=== PATIENT | male | born 1945 | race Caucasian/White ===

== ENCOUNTER 2017-07-03 09:59 | Inpatient (IN) | payer MEDICARE, MEDICAID, OTHER ==
[2017-07-03] MEDS: IV NORMAL SALINE 1000ML BAG 1,000 ML IV (10:38)
[2017-07-03 10:54] LABS: ADD MAN DIFF? NO
[2017-07-03 10:58] LABS: BASO # 0.1 x10^3/uL (0.0-0.2); BASO % 1 % (0-3); EOS # 0.3 x10^3/uL (0.0-0.7); EOS % 4 % (0-3); HEMATOCRIT 42.3 % (39.0-53.0); HEMOGLOBIN 14.2 g/dL (13.0-17.5); LYMPH # 1.8 x10^3/uL (1.0-4.8); LYMPH % 23 % (24-48); MEAN CORPUSCULAR HEMOGLOBIN 32 pg (25-35); MEAN CORPUSCULAR HGB CONC 34 g/dL (31-37); MEAN CORPUSCULAR VOLUME 96 fL (79-100); MONO # 0.7 x10^3/uL (0.0-1.1); MONO % 9 % (0-9); NEUT # 4.9 x10^3uL (1.8-7.7); NEUT % 63 % (31-73); PLATELET COUNT 193 x10^3/uL (140-400); RED BLOOD COUNT 4.41 x10^6/uL (4.30-5.70); RED CELL DISTRIBUTION WIDTH 13.4 % (11.5-14.5); WHITE BLOOD COUNT 7.8 x10^3/uL (4.0-11.0)
[2017-07-03 11:12] LABS: ANION GAP 12 (6-14); BLOOD UREA NITROGEN 21 mg/dL (8-26); BUN/CREATININE RATIO 18 (6-20); CARBON DIOXIDE 26 mmol/L (21-32); CHLORIDE 105 mmol/L (98-107); CREATININE 1.2 mg/dL (0.7-1.3); GFR 59.9; GLUCOSE 120 mg/dL (70-99); POTASSIUM 3.9 mmol/L (3.5-5.1); SODIUM 143 mmol/L (136-145)
[2017-07-03 11:19] LABS: ALBUMIN 3.7 g/dL (3.4-5.0); ALK PHOS 83 U/L (46-116); ALT (SGPT) 22 U/L (16-63); AST (SGOT) 14 U/L (15-37); CREATINE KINASE 62 U/L (39-308); LIPASE 210 U/L (73-393); TOTAL BILIRUBIN 0.4 mg/dL (0.2-1.0); TOTAL PROTEIN 7.4 g/dL (6.4-8.2)
[2017-07-03 11:19] LABS: TROPONINI < 0.017 ng/mL (0.000-0.055)
[2017-07-03 11:23] LABS: NT-PRO BNP 293 pg/mL (0-124)
[2017-07-03 11:26] LABS: THYROID STIM HORMONE (TSH) 1.035 uIU/mL (0.358-3.74)
[2017-07-03 11:27] LABS: PARTIAL THROMBOPLASTIN TIME 28 SEC (24-38); PROTHROMBIN TIME PATIENT 12.3 SEC (11.7-14.0)
[2017-07-03] MEDS ORDERED: ONDANSETRON PF 4 MG/2 ML VIAL. IV (11:45)
[2017-07-03] MEDS ORDERED: fentaNYL PF VIAL 100 MCG/2 ML VIAL IV (11:45)
[2017-07-03 11:53] LABS: BARBITURATES NEG (NEG); BENZODIAZEPINES NEG (NEG); CANNABINOIDS NEG (NEG); COCAINE NEG (NEG); METHADONE NEG (NEG); OPIATES NEG (NEG); PHENCYCLIDINE NEG (NEG)
[2017-07-03 11:56] LABS: AMPHETAMINE/METHAMPHETAMINE NEG (NEG); ETHANOL, URINE NEG (NEG)
[2017-07-03] MEDS ORDERED: NITROGLYCERIN SUBLINGUAL 0.4 MG BOTTLE OF 25. SL (14:30)
[2017-07-03] MEDS ORDERED: NON FORMULARY ITEM (Albuterol Sulfate (Proventil Hfa Inhaler) 1 PUFF) IH (14:30)
[2017-07-03] MEDS ORDERED: METHYL SALICYLATE/MENTHOL TOPICAL OINTMENT 29GM TUBE. TP (14:45)
[2017-07-03] MEDS ORDERED: ALBUTEROL SULFATE 2.5 MG/3 ML NEBU. NEB (14:45)
[2017-07-03 17:53] LABS: TROPONINI < 0.017 ng/mL (0.000-0.055)
[2017-07-03] MEDS: IBUPROFEN 400 MG TABLET. PO (21:15)
[2017-07-03] MEDS: ATORVASTATIN CALCIUM 20 MG TABLET PO (21:15)
[2017-07-03] MEDS: MONTELUKAST SODIUM 10 MG TABLET. PO (21:15)
[2017-07-03] MEDS: LISINOPRIL 20 MG TABLET PO (21:16)
[2017-07-03] MEDS: ACETAMINOPHEN 325 MG TABLET. PO (21:18)
[2017-07-03] MEDS: DOCUSATE SODIUM 100 MG CAPSULE. PO (21:18)
[2017-07-04 00:17] LABS: TROPONINI < 0.017 ng/mL (0.000-0.055)
[2017-07-04 08:28] LABS: ADD MAN DIFF? NO
[2017-07-04 08:35] LABS: BASO # 0.1 x10^3/uL (0.0-0.2); BASO % 1 % (0-3); EOS # 0.4 x10^3/uL (0.0-0.7); EOS % 7 % (0-3); HEMOGLOBIN 13.2 g/dL (13.0-17.5); LYMPH # 1.4 x10^3/uL (1.0-4.8); LYMPH % 21 % (24-48); MEAN CORPUSCULAR HEMOGLOBIN 31 pg (25-35); MEAN CORPUSCULAR HGB CONC 33 g/dL (31-37); MEAN CORPUSCULAR VOLUME 94 fL (79-100); MONO # 0.5 x10^3/uL (0.0-1.1); MONO % 8 % (0-9); NEUT # 4.1 x10^3uL (1.8-7.7); NEUT % 64 % (31-73); PLATELET COUNT 167 x10^3/uL (140-400); RED BLOOD COUNT 4.24 x10^6/uL (4.30-5.70); RED CELL DISTRIBUTION WIDTH 13.2 % (11.5-14.5); WHITE BLOOD COUNT 6.4 x10^3/uL (4.0-11.0)
[2017-07-04] MEDS: PRENATAL MULTIVITAMIN TABLET. PO ×2 (09:00→09:58)
[2017-07-04] MEDS: LISINOPRIL 20 MG TABLET PO (09:00)
[2017-07-04] MEDS: ACETAMINOPHEN 325 MG TABLET. PO ×2 (09:00→20:27)
[2017-07-04 09:02] LABS: ALBUMIN 3.4 g/dL (3.4-5.0); ALBUMIN/GLOBULIN RATIO 0.9 (1.0-1.7); ALK PHOS 81 U/L (46-116); ALT (SGPT) 19 U/L (16-63); ANION GAP 9 (6-14); AST (SGOT) 10 U/L (15-37); BLOOD UREA NITROGEN 18 mg/dL (8-26); BUN/CREATININE RATIO 16 (6-20); CALCIUM 8.7 mg/dL (8.5-10.1); CARBON DIOXIDE 25 mmol/L (21-32); CHLORIDE 108 mmol/L (98-107); CREATININE 1.1 mg/dL (0.7-1.3); GFR 66.2; GLUCOSE 91 mg/dL (70-99); POTASSIUM 4.4 mmol/L (3.5-5.1); SODIUM 142 mmol/L (136-145); TOTAL BILIRUBIN 0.4 mg/dL (0.2-1.0)
[2017-07-04 09:39] LABS: CHOLESTEROL 130 mg/dL (0-200); HDLC 40 mg/dL (40-60); LDLC 70 mg/dL (0-100); NON-HDL CHOLESTEROL 90 mg/dL (0-129); TRIGLYCERIDES 101 mg/dL (0-150); VLDLC 20 mg/dL (0-40)
[2017-07-04 09:39] LABS: MAGNESIUM 2.1 mg/dL (1.8-2.4)
[2017-07-04 09:40] LABS: CHOLESTEROL/HDL RATIO 3.3
[2017-07-04] MEDS: IBUPROFEN 400 MG TABLET. PO ×2 (09:56→20:24)
[2017-07-04] MEDS: ASPIRIN ENTERIC COATED 81 MG TABLET.DR. PO (09:58)
[2017-07-04] MEDS: CLOPIDOGREL BISULFATE 75 MG TABLET PO (09:58)
[2017-07-04 11:30] LABS: VITAMIN-B12 303 pg/mL (247-911)
[2017-07-04] MEDS: METOPROLOL TART IMMED RELEASE 25 MG TABLET. PO (18:13)
[2017-07-04] MEDS: ATORVASTATIN CALCIUM 20 MG TABLET PO (20:24)
[2017-07-04] MEDS: DOCUSATE SODIUM 100 MG CAPSULE. PO (20:25)
[2017-07-04] MEDS: MONTELUKAST SODIUM 10 MG TABLET. PO (20:27)
[2017-07-05 03:42] LABS: ADD MAN DIFF? NO
[2017-07-05 03:46] LABS: BASO % 1 % (0-3); EOS # 0.6 x10^3/uL (0.0-0.7); EOS % 7 % (0-3); HEMATOCRIT 38.9 % (39.0-53.0); LYMPH % 25 % (24-48); MEAN CORPUSCULAR HEMOGLOBIN 31 pg (25-35); MEAN CORPUSCULAR HGB CONC 33 g/dL (31-37); MEAN CORPUSCULAR VOLUME 94 fL (79-100); MONO # 0.7 x10^3/uL (0.0-1.1); MONO % 9 % (0-9); NEUT # 4.6 x10^3uL (1.8-7.7); NEUT % 58 % (31-73); PLATELET COUNT 169 x10^3/uL (140-400); RED BLOOD COUNT 4.13 x10^6/uL (4.30-5.70); RED CELL DISTRIBUTION WIDTH 13.3 % (11.5-14.5); WHITE BLOOD COUNT 7.9 x10^3/uL (4.0-11.0)
[2017-07-05 04:04] LABS: ANION GAP 8 (6-14); BLOOD UREA NITROGEN 21 mg/dL (8-26); CALCIUM 8.5 mg/dL (8.5-10.1); CARBON DIOXIDE 25 mmol/L (21-32); CHLORIDE 107 mmol/L (98-107); CREATININE 1.1 mg/dL (0.7-1.3); GFR 66.2; GLUCOSE 87 mg/dL (70-99); POTASSIUM 4.3 mmol/L (3.5-5.1); SODIUM 140 mmol/L (136-145)
[2017-07-05] MEDS: ACETAMINOPHEN 325 MG TABLET. PO ×2 (09:00→20:39)
[2017-07-05] MEDS: PRENATAL MULTIVITAMIN TABLET. PO (09:54)
[2017-07-05] MEDS: METOPROLOL TART IMMED RELEASE 25 MG TABLET. PO ×2 (10:02→20:38)
[2017-07-05] MEDS: CLOPIDOGREL BISULFATE 75 MG TABLET PO (10:03)
[2017-07-05] MEDS: ASPIRIN ENTERIC COATED 81 MG TABLET.DR. PO (10:03)
[2017-07-05] MEDS: LISINOPRIL 10 MG TABLET PO (10:03)
[2017-07-05] MEDS: IBUPROFEN 400 MG TABLET. PO ×2 (10:09→20:38)
[2017-07-05] MEDS: REGADENOSON 0.4 MG/5 ML DISP.SYRIN. IV (14:07)
[2017-07-05] MEDS: ATORVASTATIN CALCIUM 20 MG TABLET PO (20:38)
[2017-07-05] MEDS: MONTELUKAST SODIUM 10 MG TABLET. PO (20:39)
[2017-07-05] MEDS: DOCUSATE SODIUM 100 MG CAPSULE. PO (20:39)
[2017-07-06 06:30] LABS: ADD MAN DIFF? NO
[2017-07-06 06:35] LABS: BASO # 0.1 x10^3/uL (0.0-0.2); BASO % 1 % (0-3); EOS # 0.7 x10^3/uL (0.0-0.7); EOS % 9 % (0-3); HEMATOCRIT 39.9 % (39.0-53.0); HEMOGLOBIN 13.4 g/dL (13.0-17.5); LYMPH # 1.5 x10^3/uL (1.0-4.8); LYMPH % 19 % (24-48); MEAN CORPUSCULAR HEMOGLOBIN 31 pg (25-35); MEAN CORPUSCULAR HGB CONC 34 g/dL (31-37); MEAN CORPUSCULAR VOLUME 93 fL (79-100); MONO # 0.6 x10^3/uL (0.0-1.1); MONO % 7 % (0-9); NEUT # 5.1 x10^3uL (1.8-7.7); NEUT % 65 % (31-73); PLATELET COUNT 176 x10^3/uL (140-400); RED BLOOD COUNT 4.29 x10^6/uL (4.30-5.70); RED CELL DISTRIBUTION WIDTH 13.4 % (11.5-14.5)
[2017-07-06 06:53] LABS: ANION GAP 9 (6-14); BLOOD UREA NITROGEN 22 mg/dL (8-26); CALCIUM 8.8 mg/dL (8.5-10.1); CARBON DIOXIDE 26 mmol/L (21-32); CHLORIDE 106 mmol/L (98-107); CREATININE 1.2 mg/dL (0.7-1.3); GFR 59.9; GLUCOSE 104 mg/dL (70-99); POTASSIUM 4.5 mmol/L (3.5-5.1); SODIUM 141 mmol/L (136-145)
[2017-07-06] MEDS: ACETAMINOPHEN 325 MG TABLET. PO ×2 (09:00→20:46)
[2017-07-06] MEDS: IBUPROFEN 400 MG TABLET. PO (10:24)
[2017-07-06] MEDS ORDERED: LIDOCAINE 2% 20 ML VIAL. ×2 (12:42→13:31)
[2017-07-06] MEDS ORDERED: IOHEXOL 300 MG/ML 100ML VIAL. (12:42)
[2017-07-06] MEDS ORDERED: MIDAZOLAM HCL/PF 2 MG/2 ML VIAL. (13:21)
[2017-07-06] MEDS ORDERED: fentaNYL PF VIAL 100 MCG/2 ML VIAL (13:21)
[2017-07-06] MEDS ORDERED: CONTRAST GIVEN MC (13:45)
[2017-07-06] MEDS: IOHEXOL 300 MG/ML 100ML VIAL. IART (13:59)
[2017-07-06] MEDS: LIDOCAINE 2% 20 ML VIAL. IJ (14:01)
[2017-07-06] MEDS: fentaNYL PF VIAL 100 MCG/2 ML VIAL IV (14:02)
[2017-07-06] MEDS: MIDAZOLAM HCL/PF 2 MG/2 ML VIAL. IV (14:03)
[2017-07-06] MEDS: LISINOPRIL 10 MG TABLET PO (14:46)
[2017-07-06] MEDS: CLOPIDOGREL BISULFATE 75 MG TABLET PO (14:46)
[2017-07-06] MEDS: ASPIRIN ENTERIC COATED 81 MG TABLET.DR. PO (14:46)
[2017-07-06] MEDS: METOPROLOL TART IMMED RELEASE 25 MG TABLET. PO ×2 (14:46→20:45)
[2017-07-06] MEDS: IV NORMAL SALINE 1000ML BAG 1,000 ML IV (15:46)
[2017-07-06] MEDS ORDERED: 0.9 % SODIUM CHLORIDE 10 ML DISP.SYRIN. IV (16:00)
[2017-07-06] MEDS ORDERED: NITROGLYCERIN SUBLINGUAL 0.4 MG BOTTLE OF 25. SL (16:00)
[2017-07-06] MEDS: HEPARIN 25,000UTS/500ML PREMIX 500 ML IV (16:36)
[2017-07-06] MEDS: HEPARIN for IV BOLUS 10,000 UNIT/10 ML VIAL. IV ×2 (16:40→23:17)
[2017-07-06] MEDS: MONTELUKAST SODIUM 10 MG TABLET. PO (20:44)
[2017-07-06] MEDS: ATORVASTATIN CALCIUM 20 MG TABLET PO (20:45)
[2017-07-06] MEDS: DOCUSATE SODIUM 100 MG CAPSULE. PO (20:45)
[2017-07-06 23:01] LABS: UNFRACTIONATED HEPARIN TESTING < 0.10 IU/mL (0.30-0.70)
[2017-07-07 04:54] LABS: ADD MAN DIFF? NO
[2017-07-07 04:58] LABS: BASO # 0.1 x10^3/uL (0.0-0.2); BASO % 1 % (0-3); EOS # 0.6 x10^3/uL (0.0-0.7); EOS % 7 % (0-3); HEMATOCRIT 40.7 % (39.0-53.0); HEMOGLOBIN 13.7 g/dL (13.0-17.5); LYMPH % 23 % (24-48); MEAN CORPUSCULAR HEMOGLOBIN 32 pg (25-35); MEAN CORPUSCULAR HGB CONC 34 g/dL (31-37); MEAN CORPUSCULAR VOLUME 94 fL (79-100); MONO # 0.7 x10^3/uL (0.0-1.1); MONO % 8 % (0-9); NEUT # 5.5 x10^3uL (1.8-7.7); NEUT % 62 % (31-73); PLATELET COUNT 178 x10^3/uL (140-400); RED BLOOD COUNT 4.33 x10^6/uL (4.30-5.70); RED CELL DISTRIBUTION WIDTH 13.5 % (11.5-14.5); WHITE BLOOD COUNT 8.8 x10^3/uL (4.0-11.0)
[2017-07-07 05:12] LABS: UNFRACTIONATED HEPARIN TESTING 0.15 IU/mL (0.30-0.70)
[2017-07-07 05:22] LABS: ANION GAP 11 (6-14); BLOOD UREA NITROGEN 24 mg/dL (8-26); CALCIUM 8.1 mg/dL (8.5-10.1); CARBON DIOXIDE 23 mmol/L (21-32); CHLORIDE 105 mmol/L (98-107); CREATININE 1.1 mg/dL (0.7-1.3); GFR 66.2; GLUCOSE 98 mg/dL (70-99); POTASSIUM 4.1 mmol/L (3.5-5.1); SODIUM 139 mmol/L (136-145)
[2017-07-07] MEDS: HEPARIN for IV BOLUS 10,000 UNIT/10 ML VIAL. IV (05:35)
[2017-07-07] MEDS: ANTI-COAG MONITOR BY PHARMACY. MC (07:47)
[2017-07-07] MEDS: ACETAMINOPHEN 325 MG TABLET. PO ×2 (09:00→20:14)
[2017-07-07] MEDS: METOPROLOL TART IMMED RELEASE 25 MG TABLET. PO ×2 (09:07→20:18)
[2017-07-07] MEDS: PRENATAL MULTIVITAMIN TABLET. PO (09:07)
[2017-07-07] MEDS: ASPIRIN ENTERIC COATED 81 MG TABLET.DR. PO (09:07)
[2017-07-07 11:54] LABS: UNFRACTIONATED HEPARIN TESTING 0.39 IU/mL (0.30-0.70)
[2017-07-07] MEDS: HEPARIN 25,000UTS/500ML PREMIX 500 ML IV (14:58)
[2017-07-07] MEDS: HYDROcodone/APAP 5/325MG 1 TAB TABLET PO ×2 (15:08→21:38)
[2017-07-07 17:54] LABS: UNFRACTIONATED HEPARIN TESTING 0.29 IU/mL (0.30-0.70)
[2017-07-07] MEDS: DOCUSATE SODIUM 100 MG CAPSULE. PO (20:14)
[2017-07-07] MEDS: ATORVASTATIN CALCIUM 20 MG TABLET PO (20:18)
[2017-07-07] MEDS: MONTELUKAST SODIUM 10 MG TABLET. PO ×2 (20:18→20:21)
[2017-07-08 06:11] LABS: ADD MAN DIFF? NO
[2017-07-08 06:26] LABS: UNFRACTIONATED HEPARIN TESTING 0.57 IU/mL (0.30-0.70)
[2017-07-08 06:27] LABS: BASO # 0.1 x10^3/uL (0.0-0.2); BASO % 1 % (0-3); EOS # 0.5 x10^3/uL (0.0-0.7); EOS % 6 % (0-3); HEMATOCRIT 39.3 % (39.0-53.0); HEMOGLOBIN 13.1 g/dL (13.0-17.5); LYMPH % 26 % (24-48); MEAN CORPUSCULAR HEMOGLOBIN 32 pg (25-35); MEAN CORPUSCULAR HGB CONC 33 g/dL (31-37); MEAN CORPUSCULAR VOLUME 95 fL (79-100); MONO # 0.7 x10^3/uL (0.0-1.1); MONO % 9 % (0-9); NEUT # 4.6 x10^3uL (1.8-7.7); NEUT % 59 % (31-73); PLATELET COUNT 144 x10^3/uL (140-400); RED BLOOD COUNT 4.15 x10^6/uL (4.30-5.70); RED CELL DISTRIBUTION WIDTH 13.4 % (11.5-14.5); WHITE BLOOD COUNT 7.8 x10^3/uL (4.0-11.0)
[2017-07-08 06:46] LABS: ANION GAP 11 (6-14); BLOOD UREA NITROGEN 24 mg/dL (8-26); CALCIUM 8.3 mg/dL (8.5-10.1); CARBON DIOXIDE 24 mmol/L (21-32); CHLORIDE 107 mmol/L (98-107); CREATININE 1.2 mg/dL (0.7-1.3); GFR 59.9; GLUCOSE 98 mg/dL (70-99); POTASSIUM 4.5 mmol/L (3.5-5.1); SODIUM 142 mmol/L (136-145)
[2017-07-08] MEDS: ACETAMINOPHEN 325 MG TABLET. PO ×2 (09:00→21:00)
[2017-07-08] MEDS: PRENATAL MULTIVITAMIN TABLET. PO (09:06)
[2017-07-08] MEDS: ASPIRIN ENTERIC COATED 81 MG TABLET.DR. PO (09:06)
[2017-07-08] MEDS: METOPROLOL TART IMMED RELEASE 25 MG TABLET. PO ×2 (09:06→20:43)
[2017-07-08] MEDS: HYDROcodone/APAP 5/325MG 1 TAB TABLET PO ×2 (09:06→17:03)
[2017-07-08 13:21] LABS: UNFRACTIONATED HEPARIN TESTING 0.38 IU/mL (0.30-0.70)
[2017-07-08] MEDS: DOCUSATE SODIUM 100 MG CAPSULE. PO (20:42)
[2017-07-08] MEDS: ATORVASTATIN CALCIUM 20 MG TABLET PO (20:43)
[2017-07-08] MEDS: MONTELUKAST SODIUM 10 MG TABLET. PO (20:44)
[2017-07-09] MEDS: HEPARIN 25,000UTS/500ML PREMIX 500 ML IV ×2 (03:22→18:56)
[2017-07-09 05:18] LABS: ADD MAN DIFF? NO
[2017-07-09 05:40] LABS: BASO % 1 % (0-3); EOS # 0.5 x10^3/uL (0.0-0.7); EOS % 6 % (0-3); HEMATOCRIT 38.1 % (39.0-53.0); HEMOGLOBIN 12.6 g/dL (13.0-17.5); LYMPH # 1.8 x10^3/uL (1.0-4.8); LYMPH % 23 % (24-48); MEAN CORPUSCULAR HEMOGLOBIN 31 pg (25-35); MEAN CORPUSCULAR HGB CONC 33 g/dL (31-37); MEAN CORPUSCULAR VOLUME 95 fL (79-100); MONO # 0.7 x10^3/uL (0.0-1.1); MONO % 9 % (0-9); NEUT # 4.9 x10^3uL (1.8-7.7); NEUT % 62 % (31-73); PLATELET COUNT 151 x10^3/uL (140-400); RED BLOOD COUNT 4.03 x10^6/uL (4.30-5.70); RED CELL DISTRIBUTION WIDTH 13.8 % (11.5-14.5)
[2017-07-09 06:19] LABS: ANION GAP 11 (6-14); BLOOD UREA NITROGEN 24 mg/dL (8-26); CALCIUM 8.5 mg/dL (8.5-10.1); CARBON DIOXIDE 23 mmol/L (21-32); CHLORIDE 106 mmol/L (98-107); CREATININE 1.1 mg/dL (0.7-1.3); GFR 66.2; GLUCOSE 108 mg/dL (70-99); POTASSIUM 3.8 mmol/L (3.5-5.1); SODIUM 140 mmol/L (136-145)
[2017-07-09] MEDS: METOPROLOL TART IMMED RELEASE 25 MG TABLET. PO ×2 (07:50→20:58)
[2017-07-09] MEDS: ASPIRIN ENTERIC COATED 81 MG TABLET.DR. PO (07:51)
[2017-07-09] MEDS: PRENATAL MULTIVITAMIN TABLET. PO (07:51)
[2017-07-09] MEDS: ACETAMINOPHEN 325 MG TABLET. PO ×3 (07:51→21:00)
[2017-07-09] MEDS: HYDROcodone/APAP 5/325MG 1 TAB TABLET PO ×4 (07:52→20:57)
[2017-07-09 08:31] LABS: UNFRACTIONATED HEPARIN TESTING 0.76 IU/mL (0.30-0.70)
[2017-07-09 15:50] LABS: UNFRACTIONATED HEPARIN TESTING 0.63 IU/mL (0.30-0.70)
[2017-07-09] MEDS: ANTI-COAG MONITOR BY PHARMACY. MC (16:08)
[2017-07-09] MEDS: ATORVASTATIN CALCIUM 20 MG TABLET PO (20:55)
[2017-07-09] MEDS: MONTELUKAST SODIUM 10 MG TABLET. PO (21:00)
[2017-07-09] MEDS: DOCUSATE SODIUM 100 MG CAPSULE. PO (21:00)
[2017-07-10 01:16] LABS: UNFRACTIONATED HEPARIN TESTING 0.44 IU/mL (0.30-0.70)
[2017-07-10 06:12] LABS: ADD MAN DIFF? NO
[2017-07-10 06:15] LABS: BASO # 0.1 x10^3/uL (0.0-0.2); BASO % 1 % (0-3); EOS # 0.6 x10^3/uL (0.0-0.7); EOS % 9 % (0-3); HEMATOCRIT 38.6 % (39.0-53.0); HEMOGLOBIN 12.7 g/dL (13.0-17.5); LYMPH # 1.6 x10^3/uL (1.0-4.8); LYMPH % 22 % (24-48); MEAN CORPUSCULAR HEMOGLOBIN 31 pg (25-35); MEAN CORPUSCULAR HGB CONC 33 g/dL (31-37); MEAN CORPUSCULAR VOLUME 94 fL (79-100); MONO # 0.6 x10^3/uL (0.0-1.1); MONO % 8 % (0-9); NEUT # 4.5 x10^3uL (1.8-7.7); NEUT % 61 % (31-73); PLATELET COUNT 158 x10^3/uL (140-400); RED CELL DISTRIBUTION WIDTH 13.2 % (11.5-14.5); WHITE BLOOD COUNT 7.4 x10^3/uL (4.0-11.0)
[2017-07-10] MEDS: HYDROcodone/APAP 5/325MG 1 TAB TABLET PO ×3 (06:15→19:49)
[2017-07-10 06:31] LABS: UNFRACTIONATED HEPARIN TESTING 0.47 IU/mL (0.30-0.70)
[2017-07-10 06:42] LABS: ANION GAP 10 (6-14); BLOOD UREA NITROGEN 22 mg/dL (8-26); CALCIUM 8.6 mg/dL (8.5-10.1); CARBON DIOXIDE 24 mmol/L (21-32); CHLORIDE 104 mmol/L (98-107); CREATININE 1.2 mg/dL (0.7-1.3); GFR 59.9; GLUCOSE 99 mg/dL (70-99); POTASSIUM 4.2 mmol/L (3.5-5.1); SODIUM 138 mmol/L (136-145)
[2017-07-10] MEDS: ACETAMINOPHEN 325 MG TABLET. PO ×2 (08:06→21:00)
[2017-07-10] MEDS: METOPROLOL TART IMMED RELEASE 25 MG TABLET. PO ×2 (08:08→20:59)
[2017-07-10] MEDS: PRENATAL MULTIVITAMIN TABLET. PO (08:08)
[2017-07-10] MEDS: ASPIRIN ENTERIC COATED 81 MG TABLET.DR. PO (08:08)
[2017-07-10] MEDS: HEPARIN 25,000UTS/500ML PREMIX 500 ML IV (15:14)
[2017-07-10] MEDS: ANTI-COAG MONITOR BY PHARMACY. MC (16:26)
[2017-07-10] MEDS: MONTELUKAST SODIUM 10 MG TABLET. PO (20:59)
[2017-07-10] MEDS: ATORVASTATIN CALCIUM 20 MG TABLET PO (20:59)
[2017-07-10] MEDS: DOCUSATE SODIUM 100 MG CAPSULE. PO (21:01)
[2017-07-11] MEDS: HYDROcodone/APAP 5/325MG 1 TAB TABLET PO ×3 (05:03→20:46)
[2017-07-11] MEDS: HEPARIN 25,000UTS/500ML PREMIX 500 ML IV (05:09)
[2017-07-11 05:20] LABS: ADD MAN DIFF? NO
[2017-07-11 05:32] LABS: BASO # 0.1 x10^3/uL (0.0-0.2); BASO % 1 % (0-3); EOS # 0.6 x10^3/uL (0.0-0.7); EOS % 8 % (0-3); HEMATOCRIT 39.2 % (39.0-53.0); HEMOGLOBIN 13.1 g/dL (13.0-17.5); LYMPH # 1.8 x10^3/uL (1.0-4.8); LYMPH % 26 % (24-48); MEAN CORPUSCULAR HEMOGLOBIN 31 pg (25-35); MEAN CORPUSCULAR HGB CONC 33 g/dL (31-37); MEAN CORPUSCULAR VOLUME 94 fL (79-100); MONO # 0.5 x10^3/uL (0.0-1.1); MONO % 8 % (0-9); NEUT # 3.9 x10^3uL (1.8-7.7); NEUT % 58 % (31-73); PLATELET COUNT 156 x10^3/uL (140-400); RED BLOOD COUNT 4.17 x10^6/uL (4.30-5.70); RED CELL DISTRIBUTION WIDTH 13.5 % (11.5-14.5); WHITE BLOOD COUNT 6.8 x10^3/uL (4.0-11.0)
[2017-07-11 05:57] LABS: ANION GAP 8 (6-14); BLOOD UREA NITROGEN 24 mg/dL (8-26); CARBON DIOXIDE 26 mmol/L (21-32); CHLORIDE 104 mmol/L (98-107); CREATININE 1.2 mg/dL (0.7-1.3); GFR 59.9; GLUCOSE 94 mg/dL (70-99); SODIUM 138 mmol/L (136-145)
[2017-07-11] MEDS: ACETAMINOPHEN 325 MG TABLET. PO ×2 (09:00→20:46)
[2017-07-11] MEDS: ASPIRIN ENTERIC COATED 81 MG TABLET.DR. PO (09:21)
[2017-07-11] MEDS: PRENATAL MULTIVITAMIN TABLET. PO (09:21)
[2017-07-11] MEDS: METOPROLOL TART IMMED RELEASE 25 MG TABLET. PO ×2 (09:22→20:46)
[2017-07-11] MEDS: ATORVASTATIN CALCIUM 20 MG TABLET PO (20:45)
[2017-07-11] MEDS: DOCUSATE SODIUM 100 MG CAPSULE. PO (20:45)
[2017-07-11] MEDS: MONTELUKAST SODIUM 10 MG TABLET. PO (20:46)
[2017-07-11 21:10] LABS: MRSA BY PCR Negative (Negative)
[2017-07-12 05:13] LABS: ADD MAN DIFF? NO
[2017-07-12 05:17] LABS: BASO # 0.1 x10^3/uL (0.0-0.2); BASO % 1 % (0-3); EOS # 0.5 x10^3/uL (0.0-0.7); EOS % 7 % (0-3); HEMATOCRIT 38.9 % (39.0-53.0); LYMPH # 1.4 x10^3/uL (1.0-4.8); LYMPH % 22 % (24-48); MEAN CORPUSCULAR HEMOGLOBIN 32 pg (25-35); MEAN CORPUSCULAR HGB CONC 33 g/dL (31-37); MEAN CORPUSCULAR VOLUME 95 fL (79-100); MONO # 0.6 x10^3/uL (0.0-1.1); MONO % 9 % (0-9); NEUT # 3.9 x10^3uL (1.8-7.7); NEUT % 61 % (31-73); PLATELET COUNT 156 x10^3/uL (140-400); RED BLOOD COUNT 4.11 x10^6/uL (4.30-5.70); RED CELL DISTRIBUTION WIDTH 13.6 % (11.5-14.5); WHITE BLOOD COUNT 6.5 x10^3/uL (4.0-11.0)
[2017-07-12 05:57] LABS: ANION GAP 12 (6-14); BLOOD UREA NITROGEN 27 mg/dL (8-26); CALCIUM 8.3 mg/dL (8.5-10.1); CARBON DIOXIDE 22 mmol/L (21-32); CHLORIDE 106 mmol/L (98-107); CREATININE 1.3 mg/dL (0.7-1.3); GFR 54.6; GLUCOSE 90 mg/dL (70-99); POTASSIUM 4.1 mmol/L (3.5-5.1); SODIUM 140 mmol/L (136-145)
[2017-07-12] MEDS ORDERED: ETOMIDATE 20 MG/10 ML VIAL. IV (06:07)
[2017-07-12] MEDS ORDERED: NITROGLYCERIN PREMIX 250 ML IV (06:07)
[2017-07-12] MEDS ORDERED: AMINOCAPROIC ACID 5,000 MG/20 ML VIAL. IV (06:07)
[2017-07-12] MEDS ORDERED: PHENYLEPHRINE 10 MG/ML VIAL. (06:07)
[2017-07-12] MEDS ORDERED: HEPARIN 30,000 UNIT/30 ML VIAL. ×2 (06:07→08:19)
[2017-07-12] MEDS ORDERED: ROCURONIUM 100 MG/10 ML VIAL. ×2 (06:07→08:48)
[2017-07-12] MEDS ORDERED: EPINEPHrine SYRINGE 1 MG/10 ML SYRINGE (06:23)
[2017-07-12 07:00] LABS: UNFRACTIONATED HEPARIN TESTING < 0.10 IU/mL (0.30-0.70)
[2017-07-12] MEDS ORDERED: MIDAZOLAM HCL/PF 2 MG/2 ML VIAL. (07:05)
[2017-07-12] MEDS: IV RINGERS,LACTATED 1000ML 1,000 ML IV ×2 (07:12→14:14)
[2017-07-12] MEDS ORDERED: MORPHINE SULFATE 2 MG/ML DISP.SYRIN. IV (07:15)
[2017-07-12] MEDS ORDERED: HYDROmorphone 2 MG/ML VIAL IV (07:15)
[2017-07-12] MEDS ORDERED: PROCHLORPERAZINE 10 MG/2 ML VIAL. IV ×2 (07:15→12:45)
[2017-07-12] MEDS ORDERED: fentaNYL PF VIAL 100 MCG/2 ML VIAL IV ×2 (07:15)
[2017-07-12] MEDS ORDERED: LIDOCAINE 1% PF 2 ML VIAL. ID (07:15)
[2017-07-12] MEDS ORDERED: ePHEDrine PF IN SALINE 50 MG/5 ML DISP.SYRIN IV (07:17)
[2017-07-12] MEDS ORDERED: MIDAZOLAM HCL/PF 5 MG/5 ML VIAL. (07:18)
[2017-07-12] MEDS ORDERED: SUFentanil 100 MCG/2 ML AMPUL. (07:18)
[2017-07-12] MEDS ORDERED: LIDOCAINE 2% PF Vial for OR 5 ML VIAL. (08:19)
[2017-07-12] MEDS ORDERED: CALCIUM CHLORIDE 1,000 MG/10 ML DISP.SYRIN IV (08:19)
[2017-07-12] MEDS ORDERED: ALBUMIN HUMAN 25% 100 ML IV (08:19)
[2017-07-12] MEDS ORDERED: HEPARIN for IV BOLUS 10,000 UNIT/10 ML VIAL. ×2 (08:19→08:30)
[2017-07-12] MEDS ORDERED: MAGNESIUM SULFATE 5 GM/10 ML VIAL. (08:19)
[2017-07-12] MEDS ORDERED: SODIUM BICARB ADULT 8.4% 50 MEQ/50 ML DISP.SYRIN. ×3 (08:19→14:42)
[2017-07-12] MEDS ORDERED: MANNITOL 25% 12.5 G/50 ML VIAL FOR OR. (08:19)
[2017-07-12] MEDS: HEPARIN PRESERVATIVE FREE 800 UNIT, NITROGLYCERIN 4 MG, VERAPAMIL 8 MG, SODIUM BICARBON... IRR (08:40)
[2017-07-12] MEDS: PAPAVERINE 60 MG/2 ML VIAL FOR OR ONLY. (08:44)
[2017-07-12] MEDS: SURGICEL HEMOSTAT 4X8 EACH. (08:44)
[2017-07-12] MEDS: VANCOMYCIN 10GM VIAL for OR. (08:44)
[2017-07-12] MEDS: HEPARIN 20,000 UNIT in IV RINGERS,LACTATED 1000ML 1,000 ML IRR (08:44)
[2017-07-12] MEDS: 0.9 % SODIUM CHLORIDE 50 ML VIAL. IJ (08:44)
[2017-07-12] MEDS ORDERED: fentaNYL PF VIAL 100 MCG/2 ML VIAL (08:50)
[2017-07-12] MEDS: ACETAMINOPHEN 325 MG TABLET. PO ×3 (09:00→23:17)
[2017-07-12] MEDS: PRENATAL MULTIVITAMIN TABLET. PO (09:00)
[2017-07-12] MEDS: POTASSIUM CHLORIDE 15 MEQ, SODIUM BICARBONATE VIAL 12.5 MEQ in IV ELECTROLYTE-S (PH 7.4... IRR (10:38)
[2017-07-12] MEDS: POTASSIUM CHLORIDE 70 MEQ, SODIUM BICARBONATE VIAL 12.5 MEQ, LIDOCAINE 2% 24 ML in IV E... IRR (10:38)
[2017-07-12] MEDS ORDERED: PROPOFOL 20 ML IV (10:41)
[2017-07-12] MEDS ORDERED: PROTAMINE 250 MG/25 ML VIAL IV ×2 (10:54→12:08)
[2017-07-12] MEDS ORDERED: ASPIRIN 300 MG SUPP.RECT PR (12:45)
[2017-07-12] MEDS ORDERED: ELECTROLYTE (ICU) PROTOCOL. MC (12:45)
[2017-07-12] MEDS ORDERED: KCL PER PROTOCOL MC (12:45)
[2017-07-12] MEDS ORDERED: MAGNESIUM SULFATE 1GM 100 ML IV (12:45)
[2017-07-12] MEDS ORDERED: BISACODYL 10 MG SUPP.RECT. PR (12:45)
[2017-07-12] MEDS ORDERED: ACETAMINOPHEN 325 MG TABLET. PO (12:45)
[2017-07-12] MEDS ORDERED: MEPERIDINE PF 25 MG/ML VIAL. IV (12:45)
[2017-07-12] MEDS ORDERED: DEXTROSE 50% 25 GM / 50ML DISP.SYRIN. IV (12:45)
[2017-07-12] MEDS ORDERED: INSULIN REGULAR VIAL 150 UNIT in 0.9 % SODIUM CHLORIDE 150ML 150 ML IV (12:45)
[2017-07-12] MEDS ORDERED: PROPOFOL 100 ML IV (12:45)
[2017-07-12] MEDS ORDERED: 0.9 % SODIUM CHLORIDE 10 ML DISP.SYRIN. IV (12:45)
[2017-07-12 12:47] LABS: FIBRINOGEN 337 mg/dL (200-440)
[2017-07-12 12:48] LABS: INR 1.7 (0.8-1.1); PARTIAL THROMBOPLASTIN TIME 34 SEC (24-38); PROTHROMBIN TIME PATIENT 18.9 SEC (11.7-14.0)
[2017-07-12 12:58] LABS: HEMATOCRIT 28.2 % (39.0-53.0); HEMOGLOBIN 9.5 g/dL (13.0-17.5); PLATELET COUNT 124 x10^3/uL (140-400); WHITE BLOOD COUNT 12.9 x10^3/uL (4.0-11.0)
[2017-07-12] MEDS: ASPIRIN 300 MG SUPP.RECT (13:18)
[2017-07-12 13:38] LABS: ART BE ISTAT -1 mmol/L (0-3); ART GLUC ISTAT 127 mg/dL (70-99); ART HCO3 ISTAT 23 mmol/L (21-28); ART HCT ISTAT 29 % (37-52); ART HGB ISTAT 9.9 g/dL (14-18); ART ION CA ISTAT 1.09 mmol/L (1.13-1.32); ART K ISTAT 5.1 mmol/L (3.5-5.0); ART NA ISTAT 139 mmol/L (135-145); ART PCO2 ISTAT 38 mmHg (35-45); ART PO2 ISTAT 288 mmHg (75-100); ART SAT O2 SAT 100 % (95-99); ART TCO2 ISTAT 25 mmol/L (21-32); TOSPEC ART
[2017-07-12 13:39] LABS: ART BE ISTAT -2 mmol/L (0-3); ART BE ISTAT -4 mmol/L (0-3); ART BE ISTAT 1 mmol/L (0-3); ART GLUC ISTAT 101 mg/dL (70-99); ART GLUC ISTAT 104 mg/dL (70-99); ART GLUC ISTAT 92 mg/dL (70-99); ART HCO3 ISTAT 22 mmol/L (21-28); ART HCO3 ISTAT 24 mmol/L (21-28); ART HCO3 ISTAT 25 mmol/L (21-28); ART HCT ISTAT 29 % (37-52); ART HCT ISTAT 33 % (37-52); ART HCT ISTAT 40 % (37-52); ART HGB ISTAT 11.2 g/dL (14-18); ART HGB ISTAT 13.6 g/dL (14-18); ART HGB ISTAT 9.9 g/dL (14-18); ART ION CA ISTAT 1.07 mmol/L (1.13-1.32); ART ION CA ISTAT 1.19 mmol/L (1.13-1.32); ART ION CA ISTAT 1.21 mmol/L (1.13-1.32); ART K ISTAT 4.7 mmol/L (3.5-5.0); ART K ISTAT 4.8 mmol/L (3.5-5.0); ART K ISTAT 5.7 mmol/L (3.5-5.0); ART NA ISTAT 138 mmol/L (135-145); ART NA ISTAT 139 mmol/L (135-145); ART NA ISTAT 140 mmol/L (135-145); ART PCO2 ISTAT 41 mmHg (35-45); ART PCO2 ISTAT 44 mmHg (35-45); ART PH ISTAT 7.32 (7.35-7.45); ART PH ISTAT 7.36 (7.35-7.45); ART PO2 ISTAT 105 mmHg (75-100); ART PO2 ISTAT 177 mmHg (75-100); ART PO2 ISTAT 355 mmHg (75-100); ART SAT O2 SAT 100 % (95-99); ART SAT O2 SAT 98 % (95-99); ART TCO2 ISTAT 24 mmol/L (21-32); ART TCO2 ISTAT 25 mmol/L (21-32); ART TCO2 ISTAT 27 mmol/L (21-32); TOSPEC ART
[2017-07-12 13:40] LABS: ART BE ISTAT -1 mmol/L (0-3); ART BE ISTAT -2 mmol/L (0-3); ART BE ISTAT -4 mmol/L (0-3); ART GLUC ISTAT 110 mg/dL (70-99); ART GLUC ISTAT 117 mg/dL (70-99); ART GLUC ISTAT 136 mg/dL (70-99); ART GLUC ISTAT 144 mg/dL (70-99); ART HCO3 ISTAT 22 mmol/L (21-28); ART HCO3 ISTAT 23 mmol/L (21-28); ART HCO3 ISTAT 24 mmol/L (21-28); ART HCT ISTAT 26 % (37-52); ART HCT ISTAT 27 % (37-52); ART HCT ISTAT 31 % (37-52); ART HGB ISTAT 10.5 g/dL (14-18); ART HGB ISTAT 8.8 g/dL (14-18); ART HGB ISTAT 9.2 g/dL (14-18); ART ION CA ISTAT 1.04 mmol/L (1.13-1.32); ART ION CA ISTAT 1.06 mmol/L (1.13-1.32); ART ION CA ISTAT 1.42 mmol/L (1.13-1.32); ART ION CA ISTAT 1.79 mmol/L (1.13-1.32); ART K ISTAT 4.5 mmol/L (3.5-5.0); ART K ISTAT 4.9 mmol/L (3.5-5.0); ART NA ISTAT 136 mmol/L (135-145); ART NA ISTAT 139 mmol/L (135-145); ART NA ISTAT 141 mmol/L (135-145); ART PCO2 ISTAT 37 mmHg (35-45); ART PCO2 ISTAT 38 mmHg (35-45); ART PCO2 ISTAT 42 mmHg (35-45); ART PH ISTAT 7.35 (7.35-7.45); ART PH ISTAT 7.37 (7.35-7.45); ART PH ISTAT 7.39 (7.35-7.45); ART PO2 ISTAT 102 mmHg (75-100); ART PO2 ISTAT 194 mmHg (75-100); ART PO2 ISTAT 273 mmHg (75-100); ART PO2 ISTAT 345 mmHg (75-100); ART SAT O2 SAT 100 % (95-99); ART SAT O2 SAT 98 % (95-99); ART TCO2 ISTAT 23 mmol/L (21-32); ART TCO2 ISTAT 24 mmol/L (21-32); ART TCO2 ISTAT 25 mmol/L (21-32); TOSPEC ART
[2017-07-12] MEDS: MORPHINE SULFATE 2 MG/ML DISP.SYRIN. IV ×5 (14:12→23:17)
[2017-07-12 14:25] LABS: HEMATOCRIT 36.6 % (39.0-53.0); HEMOGLOBIN 12.3 g/dL (13.0-17.5); MEAN CORPUSCULAR HEMOGLOBIN 32 pg (25-35); MEAN CORPUSCULAR HGB CONC 34 g/dL (31-37); MEAN CORPUSCULAR VOLUME 95 fL (79-100); PLATELET COUNT 148 x10^3/uL (140-400); RED BLOOD COUNT 3.86 x10^6/uL (4.30-5.70); RED CELL DISTRIBUTION WIDTH 13.5 % (11.5-14.5); WHITE BLOOD COUNT 19.9 x10^3/uL (4.0-11.0)
[2017-07-12 14:27] LABS: ACT+ 464 SEC (90-125)
[2017-07-12 14:27] LABS: ACT+ 440 SEC (90-125)
[2017-07-12 14:27] LABS: ACT+ 89 SEC (90-125)
[2017-07-12 14:27] LABS: ACT+ 492 SEC (90-125)
[2017-07-12 14:27] LABS: ACT+ 97 SEC (90-125)
[2017-07-12 14:27] LABS: ACT+ 159 SEC (90-125)
[2017-07-12 14:27] LABS: ACT+ 430 SEC (90-125)
[2017-07-12 14:27] LABS: ACT+ 451 SEC (90-125)
[2017-07-12] MEDS: AMIODARONE 900 MG in IV DEXTROSE 5% 500 ML IV (14:29)
[2017-07-12] MEDS: AMIODARONE 150 MG in IV DEXTROSE 5% 100 ML IV (14:29)
[2017-07-12 14:34] LABS: ANION GAP 12 (6-14); BLOOD UREA NITROGEN 24 mg/dL (8-26); CARBON DIOXIDE 23 mmol/L (21-32); CHLORIDE 107 mmol/L (98-107); CREATININE 1.3 mg/dL (0.7-1.3); GFR 54.6; GLUCOSE 124 mg/dL (70-99); MAGNESIUM 2.4 mg/dL (1.8-2.4); POTASSIUM 4.2 mmol/L (3.5-5.1); SODIUM 142 mmol/L (136-145)
[2017-07-12 14:35] LABS: INR 1.2 (0.8-1.1); PARTIAL THROMBOPLASTIN TIME 30 SEC (24-38); PROTHROMBIN TIME PATIENT 14.4 SEC (11.7-14.0)
[2017-07-12 14:48] LABS: BASE EXCESS COOX -4 mmol/L (-3-3); FIO2 COOX 100; HCO3 COOX 22 mmol/L (21-28); PCO2 COOX 43 mmHg (35-46); PH COOX 7.32 (7.35-7.45); PO2 COOX 168 mmHg (65-108); SAT O2 COOX 99 % (92-99)
[2017-07-12] MEDS: SODIUM BICARB ADULT 8.4% 50 MEQ/50 ML DISP.SYRIN. IV ×2 (14:48→17:02)
[2017-07-12] MEDS: ALBUMIN HUMAN 5% 250 ML IV ×4 (15:18→21:48)
[2017-07-12] MEDS: POTASSIUM CHLORIDE 20MEQ 50 ML IV ×2 (15:22→18:35)
[2017-07-12 16:54] LABS: BASE EXCESS ABG -4 mmol/L (-3-3); HCO3 ABG 20 mmol/L (21-28); PCO2 ABG 34 mmHg (35-46); PO2 ABG 68 mmHg (65-108)
[2017-07-12 16:55] LABS: FIO2 ABG 40; SAT O2 ABG 92 % (92-99)
[2017-07-12] MEDS: INSULIN REGULAR VIAL 150 UNIT in 0.9 % SODIUM CHLORIDE 150ML 150 ML IV (17:27)
[2017-07-12] MEDS: oxyCODONE/APAP 5/325 1 TAB TABLET PO (17:47)
[2017-07-12 18:00] LABS: HEMATOCRIT 31.3 % (39.0-53.0); HEMOGLOBIN 10.8 g/dL (13.0-17.5); MEAN CORPUSCULAR HEMOGLOBIN 32 pg (25-35); MEAN CORPUSCULAR HGB CONC 35 g/dL (31-37); MEAN CORPUSCULAR VOLUME 94 fL (79-100); PLATELET COUNT 125 x10^3/uL (140-400); RED BLOOD COUNT 3.34 x10^6/uL (4.30-5.70); RED CELL DISTRIBUTION WIDTH 13.3 % (11.5-14.5)
[2017-07-12 18:15] LABS: POTASSIUM 4.3 mmol/L (3.5-5.1)
[2017-07-12 18:42] LABS: POC GLUCOSE 137 mg/dL (70-99)
[2017-07-12 18:42] LABS: POC GLUCOSE 161 mg/dL (70-99)
[2017-07-12 18:42] LABS: POC GLUCOSE 115 mg/dL (70-99)
[2017-07-12 19:48] LABS: POC GLUCOSE 147 mg/dL (70-99)
[2017-07-12] MEDS: MONTELUKAST SODIUM 10 MG TABLET. PO (20:47)
[2017-07-12] MEDS: SENNOSIDES/DOCUSATE 8.6/50MG TABLET. PO (20:47)
[2017-07-12] MEDS: DOCUSATE SODIUM 100 MG CAPSULE. PO (20:47)
[2017-07-12] MEDS: FAMOTIDINE 20 MG/2 ML VIAL IVP (20:48)
[2017-07-12] MEDS: ATORVASTATIN CALCIUM 20 MG TABLET PO (20:57)
[2017-07-12 20:59] LABS: POC GLUCOSE 139 mg/dL (70-99)
[2017-07-12 22:00] LABS: POC GLUCOSE 151 mg/dL (70-99)
[2017-07-12 23:40] LABS: POC GLUCOSE 150 mg/dL (70-99)
[2017-07-13] MEDS: oxyCODONE/APAP 5/325 1 TAB TABLET PO ×3 (01:08→23:00)
[2017-07-13] MEDS: ALBUMIN HUMAN 5% 250 ML IV (01:51)
[2017-07-13] MEDS: MORPHINE SULFATE 2 MG/ML DISP.SYRIN. IV ×2 (01:52→11:02)
[2017-07-13 02:05] LABS: POC GLUCOSE 176 mg/dL (70-99)
[2017-07-13] MEDS: FUROSEMIDE 40 MG/4 ML VIAL. IVP ×2 (02:44→15:02)
[2017-07-13 03:26] LABS: POC GLUCOSE 134 mg/dL (70-99)
[2017-07-13 05:09] LABS: POC GLUCOSE 131 mg/dL (70-99)
[2017-07-13 05:25] LABS: ADD MAN DIFF? NO
[2017-07-13 05:49] LABS: BASO % 0 % (0-3); EOS % 0 % (0-3); HEMATOCRIT 30.8 % (39.0-53.0); HEMOGLOBIN 10.2 g/dL (13.0-17.5); LYMPH # 0.8 x10^3/uL (1.0-4.8); LYMPH % 6 % (24-48); MEAN CORPUSCULAR HEMOGLOBIN 32 pg (25-35); MEAN CORPUSCULAR HGB CONC 33 g/dL (31-37); MEAN CORPUSCULAR VOLUME 96 fL (79-100); MONO # 1.3 x10^3/uL (0.0-1.1); MONO % 10 % (0-9); NEUT # 10.8 x10^3uL (1.8-7.7); NEUT % 84 % (31-73); PLATELET COUNT 137 x10^3/uL (140-400); RED BLOOD COUNT 3.21 x10^6/uL (4.30-5.70); RED CELL DISTRIBUTION WIDTH 13.8 % (11.5-14.5); WHITE BLOOD COUNT 12.9 x10^3/uL (4.0-11.0)
[2017-07-13 06:07] LABS: ANION GAP 15 (6-14); BLOOD UREA NITROGEN 31 mg/dL (8-26); CARBON DIOXIDE 21 mmol/L (21-32); CHLORIDE 105 mmol/L (98-107); CREATININE 2.1 mg/dL (0.7-1.3); GFR 31.4; GLUCOSE 152 mg/dL (70-99); MAGNESIUM 2.2 mg/dL (1.8-2.4); POTASSIUM 4.8 mmol/L (3.5-5.1); SODIUM 141 mmol/L (136-145)
[2017-07-13 06:18] LABS: INR 1.2 (0.8-1.1); PROTHROMBIN TIME PATIENT 14.2 SEC (11.7-14.0)
[2017-07-13] MEDS: ONDANSETRON PF 4 MG/2 ML VIAL. IV ×2 (06:48→09:11)
[2017-07-13] MEDS: PHENYLEPHRINE INJ 80 MG in IV NORMAL SALINE 250ML 250 ML IV (06:48)
[2017-07-13 06:52] LABS: POC GLUCOSE 141 mg/dL (70-99)
[2017-07-13] MEDS: PRENATAL MULTIVITAMIN TABLET. PO (08:00)
[2017-07-13] MEDS: ASPIRIN ENTERIC COATED 325 MG TABLET.DR. PO (08:00)
[2017-07-13] MEDS: SENNOSIDES/DOCUSATE 8.6/50MG TABLET. PO ×2 (08:01→21:14)
[2017-07-13] MEDS: FAMOTIDINE 20 MG/2 ML VIAL IVP (08:05)
[2017-07-13] MEDS ORDERED: METOPROLOL TART IMMED RELEASE 25 MG TABLET. PO (09:00)
[2017-07-13 10:50] LABS: POC GLUCOSE 139 mg/dL (70-99)
[2017-07-13 10:50] LABS: POC GLUCOSE 127 mg/dL (70-99)
[2017-07-13 12:06] LABS: POC GLUCOSE 125 mg/dL (70-99)
[2017-07-13] MEDS: METOCLOPRAMIDE HCL 10 MG/2 ML VIAL. IV (15:03)
[2017-07-13 15:33] LABS: POC GLUCOSE 134 mg/dL (70-99)
[2017-07-13] MEDS ORDERED: IV NORMAL SALINE 500ML BAG 500 ML IV (15:45)
[2017-07-13 16:31] LABS: CREATINE KINASE 390 U/L (39-308)
[2017-07-13 16:31] LABS: URIC ACID 8.2 mg/dL (3.5-7.2)
[2017-07-13 16:43] LABS: BILIRUBIN,URINE NEGATIVE (NEG); CLARITY,URINE CLEAR; COLOR,URINE AMBER; GLUCOSE,URINE NEGATIVE (NEG); NITRITE,URINE NEGATIVE (NEG); PROTEIN,URINE NEGATIVE (NEG-TRACE)
[2017-07-13 16:45] LABS: BACTERIA,URINE 0 /HPF (0-FEW); HYALINE CASTS, URINE FEW /HPF; RBC,URINE >40 /HPF (0-2)
[2017-07-13 17:04] LABS: POC GLUCOSE 115 mg/dL (70-99)
[2017-07-13 17:04] LABS: POC GLUCOSE 129 mg/dL (70-99)
[2017-07-13 19:45] LABS: POC GLUCOSE 114 mg/dL (70-99)
[2017-07-13] MEDS: ATORVASTATIN CALCIUM 20 MG TABLET PO (21:14)
[2017-07-13] MEDS: MONTELUKAST SODIUM 10 MG TABLET. PO (21:14)
[2017-07-13] MEDS: DOCUSATE SODIUM 100 MG CAPSULE. PO (21:14)
[2017-07-13] MEDS: METOPROLOL TART IMMED RELEASE 25 MG TABLET. PO (21:15)
[2017-07-13 21:25] LABS: POC GLUCOSE 131 mg/dL (70-99)
[2017-07-14] MEDS: MORPHINE SULFATE 2 MG/ML DISP.SYRIN. IV ×4 (00:13→04:21)
[2017-07-14 00:16] LABS: POC GLUCOSE 133 mg/dL (70-99)
[2017-07-14] MEDS: oxyCODONE/APAP 5/325 1 TAB TABLET PO ×3 (00:20→18:15)
[2017-07-14 01:52] LABS: POC GLUCOSE 121 mg/dL (70-99)
[2017-07-14 04:30] LABS: POC GLUCOSE 85 mg/dL (70-99)
[2017-07-14 05:29] LABS: POC GLUCOSE 124 mg/dL (70-99)
[2017-07-14 05:31] LABS: ADD MAN DIFF? NO
[2017-07-14 05:52] LABS: ANION GAP 13 (6-14); BLOOD UREA NITROGEN 46 mg/dL (8-26); CALCIUM 8.5 mg/dL (8.5-10.1); CARBON DIOXIDE 21 mmol/L (21-32); CHLORIDE 102 mmol/L (98-107); CREATININE 2.2 mg/dL (0.7-1.3); GFR 29.7; GLUCOSE 134 mg/dL (70-99); POTASSIUM 4.8 mmol/L (3.5-5.1); SODIUM 136 mmol/L (136-145)
[2017-07-14 05:54] LABS: BASO # 0.1 x10^3/uL (0.0-0.2); BASO % 1 % (0-3); EOS % 0 % (0-3); HEMATOCRIT 29.3 % (39.0-53.0); HEMOGLOBIN 9.6 g/dL (13.0-17.5); LYMPH # 1.2 x10^3/uL (1.0-4.8); LYMPH % 9 % (24-48); MEAN CORPUSCULAR HEMOGLOBIN 31 pg (25-35); MEAN CORPUSCULAR HGB CONC 33 g/dL (31-37); MEAN CORPUSCULAR VOLUME 96 fL (79-100); MONO # 1.3 x10^3/uL (0.0-1.1); MONO % 9 % (0-9); NEUT # 11.3 x10^3uL (1.8-7.7); NEUT % 82 % (31-73); PLATELET COUNT 92 x10^3/uL (140-400); RED BLOOD COUNT 3.06 x10^6/uL (4.30-5.70); RED CELL DISTRIBUTION WIDTH 13.8 % (11.5-14.5); WHITE BLOOD COUNT 13.8 x10^3/uL (4.0-11.0)
[2017-07-14] MEDS: FAMOTIDINE 20 MG/2 ML VIAL IVP (08:54)
[2017-07-14] MEDS: ASPIRIN ENTERIC COATED 325 MG TABLET.DR. PO (08:54)
[2017-07-14] MEDS: PRENATAL MULTIVITAMIN TABLET. PO (08:54)
[2017-07-14] MEDS: SENNOSIDES/DOCUSATE 8.6/50MG TABLET. PO ×2 (08:54→21:04)
[2017-07-14] MEDS: METOPROLOL TART IMMED RELEASE 25 MG TABLET. PO ×2 (08:55→21:07)
[2017-07-14] MEDS ORDERED: DEXTROSE 50% 25 GM / 50ML DISP.SYRIN. IV (10:00)
[2017-07-14 10:15] LABS: PLT ESTIMATE DECREASED (ADEQUATE)
[2017-07-14] MEDS: FUROSEMIDE 40 MG/4 ML VIAL. IVP (10:38)
[2017-07-14] MEDS: INSULIN ASPART 300 UNITS/3 ML INSULN.PEN SQ ×2 (12:28→17:00)
[2017-07-14] MEDS: HYDROcodone/APAP 5/325MG 1 TAB TABLET PO (12:28)
[2017-07-14 12:33] LABS: POC GLUCOSE 155 mg/dL (70-99)
[2017-07-14 17:44] LABS: POC GLUCOSE 124 mg/dL (70-99)
[2017-07-14] MEDS: MONTELUKAST SODIUM 10 MG TABLET. PO (21:04)
[2017-07-14] MEDS: ATORVASTATIN CALCIUM 20 MG TABLET PO (21:04)
[2017-07-14] MEDS: FAMOTIDINE 20 MG TABLET. PO (21:04)
[2017-07-14] MEDS: DOCUSATE SODIUM 100 MG CAPSULE. PO (21:04)
[2017-07-14] MEDS: CALCIUM CARBONATE 500 MG TAB.CHEW PO (23:09)
[2017-07-15] MEDS: oxyCODONE/APAP 5/325 1 TAB TABLET PO ×3 (02:05→20:48)
[2017-07-15 05:46] LABS: ADD MAN DIFF? NO
[2017-07-15 06:03] LABS: ANION GAP 13 (6-14); BLOOD UREA NITROGEN 58 mg/dL (8-26); CARBON DIOXIDE 19 mmol/L (21-32); CHLORIDE 103 mmol/L (98-107); CREATININE 1.8 mg/dL (0.7-1.3); GFR 37.5; GLUCOSE 116 mg/dL (70-99); POTASSIUM 4.3 mmol/L (3.5-5.1); SODIUM 135 mmol/L (136-145)
[2017-07-15 06:28] LABS: BASO % 0 % (0-3); EOS % 0 % (0-3); HEMATOCRIT 28.7 % (39.0-53.0); HEMOGLOBIN 9.4 g/dL (13.0-17.5); LYMPH % 9 % (24-48); MEAN CORPUSCULAR HEMOGLOBIN 31 pg (25-35); MEAN CORPUSCULAR HGB CONC 33 g/dL (31-37); MEAN CORPUSCULAR VOLUME 95 fL (79-100); MONO # 0.9 x10^3/uL (0.0-1.1); MONO % 8 % (0-9); NEUT # 9.5 x10^3uL (1.8-7.7); NEUT % 83 % (31-73); PLATELET COUNT 52 x10^3/uL (140-400); RED BLOOD COUNT 3.02 x10^6/uL (4.30-5.70); RED CELL DISTRIBUTION WIDTH 13.8 % (11.5-14.5); WHITE BLOOD COUNT 11.4 x10^3/uL (4.0-11.0)
[2017-07-15] MEDS: POTASSIUM CHLORIDE 20MEQ 50 ML IV (06:32)
[2017-07-15 07:24] LABS: MAGNESIUM 2.5 mg/dL (1.8-2.4)
[2017-07-15] MEDS: INSULIN ASPART 300 UNITS/3 ML INSULN.PEN SQ ×3 (08:00→17:00)
[2017-07-15] MEDS: PRENATAL MULTIVITAMIN TABLET. PO (08:36)
[2017-07-15] MEDS: METOPROLOL TART IMMED RELEASE 25 MG TABLET. PO ×2 (08:36→20:39)
[2017-07-15] MEDS: SENNOSIDES/DOCUSATE 8.6/50MG TABLET. PO ×2 (08:36→20:38)
[2017-07-15] MEDS: ASPIRIN ENTERIC COATED 325 MG TABLET.DR. PO (08:36)
[2017-07-15 08:40] LABS: POC GLUCOSE 118 mg/dL (70-99)
[2017-07-15] MEDS: FUROSEMIDE 20 MG/2 ML VIAL. IVP ×2 (12:30→12:47)
[2017-07-15 12:41] LABS: POC GLUCOSE 104 mg/dL (70-99)
[2017-07-15 17:44] LABS: POC GLUCOSE 91 mg/dL (70-99)
[2017-07-15] MEDS: ATORVASTATIN CALCIUM 20 MG TABLET PO (20:38)
[2017-07-15] MEDS: MONTELUKAST SODIUM 10 MG TABLET. PO (20:38)
[2017-07-15] MEDS: FAMOTIDINE 20 MG TABLET. PO (20:38)
[2017-07-15] MEDS: DOCUSATE SODIUM 100 MG CAPSULE. PO (20:38)
[2017-07-15] MEDS: FUROSEMIDE 40 MG/4 ML VIAL. IVP (20:42)
[2017-07-15 21:12] LABS: POC GLUCOSE 110 mg/dL (70-99)
[2017-07-16] MEDS: oxyCODONE/APAP 5/325 1 TAB TABLET PO ×4 (03:07→19:17)
[2017-07-16 05:18] LABS: ADD MAN DIFF? NO
[2017-07-16 05:42] LABS: BASO # 0.1 x10^3/uL (0.0-0.2); BASO % 0 % (0-3); EOS # 0.1 x10^3/uL (0.0-0.7); EOS % 1 % (0-3); HEMATOCRIT 32.1 % (39.0-53.0); HEMOGLOBIN 10.5 g/dL (13.0-17.5); LYMPH # 1.4 x10^3/uL (1.0-4.8); LYMPH % 11 % (24-48); MEAN CORPUSCULAR HEMOGLOBIN 31 pg (25-35); MEAN CORPUSCULAR HGB CONC 33 g/dL (31-37); MEAN CORPUSCULAR VOLUME 96 fL (79-100); MONO # 1.3 x10^3/uL (0.0-1.1); MONO % 10 % (0-9); NEUT # 10.4 x10^3uL (1.8-7.7); NEUT % 79 % (31-73); PLATELET COUNT 70 x10^3/uL (140-400); RED BLOOD COUNT 3.34 x10^6/uL (4.30-5.70); RED CELL DISTRIBUTION WIDTH 13.6 % (11.5-14.5); WHITE BLOOD COUNT 13.2 x10^3/uL (4.0-11.0)
[2017-07-16 05:59] LABS: ANION GAP 11 (6-14); BLOOD UREA NITROGEN 61 mg/dL (8-26); CALCIUM 8.1 mg/dL (8.5-10.1); CARBON DIOXIDE 22 mmol/L (21-32); CHLORIDE 100 mmol/L (98-107); CREATININE 1.5 mg/dL (0.7-1.3); GFR 46.3; GLUCOSE 99 mg/dL (70-99); POTASSIUM 3.7 mmol/L (3.5-5.1); SODIUM 133 mmol/L (136-145)
[2017-07-16] MEDS: INSULIN ASPART 300 UNITS/3 ML INSULN.PEN SQ ×3 (08:00→16:53)
[2017-07-16 08:23] LABS: POC GLUCOSE 120 mg/dL (70-99)
[2017-07-16] MEDS: FUROSEMIDE 40 MG/4 ML VIAL. IVP ×2 (08:28→11:00)
[2017-07-16] MEDS: PRENATAL MULTIVITAMIN TABLET. PO (08:28)
[2017-07-16] MEDS: ASPIRIN ENTERIC COATED 325 MG TABLET.DR. PO (08:29)
[2017-07-16] MEDS: SENNOSIDES/DOCUSATE 8.6/50MG TABLET. PO ×2 (08:29→21:18)
[2017-07-16] MEDS: METOPROLOL TART IMMED RELEASE 25 MG TABLET. PO ×2 (08:29→21:18)
[2017-07-16 11:23] LABS: POC GLUCOSE 110 mg/dL (70-99)
[2017-07-16] MEDS: POLYETHYLENE GLYCOL 3350 17 GM PACKET. PO ×2 (12:47→21:18)
[2017-07-16 16:02] LABS: POC GLUCOSE 99 mg/dL (70-99)
[2017-07-16] MEDS: MONTELUKAST SODIUM 10 MG TABLET. PO (21:17)
[2017-07-16] MEDS: DOCUSATE SODIUM 100 MG CAPSULE. PO (21:17)
[2017-07-16] MEDS: CALCIUM CARBONATE 500 MG TAB.CHEW PO (21:17)
[2017-07-16] MEDS: FAMOTIDINE 20 MG TABLET. PO (21:17)
[2017-07-16] MEDS: ATORVASTATIN CALCIUM 20 MG TABLET PO (21:17)
[2017-07-16 21:24] LABS: POC GLUCOSE 90 mg/dL (70-99)
[2017-07-17] MEDS: oxyCODONE/APAP 5/325 1 TAB TABLET PO ×4 (03:59→20:49)
[2017-07-17 05:14] LABS: ADD MAN DIFF? NO
[2017-07-17 05:36] LABS: BASO % 0 % (0-3); EOS # 0.2 x10^3/uL (0.0-0.7); EOS % 2 % (0-3); HEMATOCRIT 27.2 % (39.0-53.0); HEMOGLOBIN 9.4 g/dL (13.0-17.5); LYMPH # 0.7 x10^3/uL (1.0-4.8); LYMPH % 8 % (24-48); MEAN CORPUSCULAR HEMOGLOBIN 33 pg (25-35); MEAN CORPUSCULAR HGB CONC 35 g/dL (31-37); MEAN CORPUSCULAR VOLUME 94 fL (79-100); MONO # 0.8 x10^3/uL (0.0-1.1); MONO % 9 % (0-9); NEUT % 81 % (31-73); PLATELET COUNT 83 x10^3/uL (140-400); RED BLOOD COUNT 2.88 x10^6/uL (4.30-5.70); RED CELL DISTRIBUTION WIDTH 13.7 % (11.5-14.5); WHITE BLOOD COUNT 8.7 x10^3/uL (4.0-11.0)
[2017-07-17 05:55] LABS: ANION GAP 10 (6-14); BLOOD UREA NITROGEN 54 mg/dL (8-26); CALCIUM 8.1 mg/dL (8.5-10.1); CARBON DIOXIDE 23 mmol/L (21-32); CHLORIDE 101 mmol/L (98-107); CREATININE 1.2 mg/dL (0.7-1.3); GFR 59.9; GLUCOSE 100 mg/dL (70-99); POTASSIUM 3.8 mmol/L (3.5-5.1); SODIUM 134 mmol/L (136-145)
[2017-07-17] MEDS: ASPIRIN ENTERIC COATED 325 MG TABLET.DR. PO (08:00)
[2017-07-17] MEDS: INSULIN ASPART 300 UNITS/3 ML INSULN.PEN SQ ×3 (08:00→17:00)
[2017-07-17] MEDS: METOPROLOL TART IMMED RELEASE 25 MG TABLET. PO ×2 (08:28→20:50)
[2017-07-17] MEDS: PRENATAL MULTIVITAMIN TABLET. PO (08:28)
[2017-07-17] MEDS: POLYETHYLENE GLYCOL 3350 17 GM PACKET. PO ×2 (08:28→20:49)
[2017-07-17] MEDS: SENNOSIDES/DOCUSATE 8.6/50MG TABLET. PO ×2 (08:28→20:50)
[2017-07-17] MEDS: FUROSEMIDE 40 MG/4 ML VIAL. IVP (08:29)
[2017-07-17 12:11] LABS: POC GLUCOSE 100 mg/dL (70-99)
[2017-07-17 12:11] LABS: POC GLUCOSE 96 mg/dL (70-99)
[2017-07-17 17:04] LABS: POC GLUCOSE 90 mg/dL (70-99)
[2017-07-17] MEDS: FAMOTIDINE 20 MG TABLET. PO (20:49)
[2017-07-17] MEDS: MONTELUKAST SODIUM 10 MG TABLET. PO (20:49)
[2017-07-17] MEDS: DOCUSATE SODIUM 100 MG CAPSULE. PO (20:50)
[2017-07-17] MEDS: ATORVASTATIN CALCIUM 20 MG TABLET PO (20:50)
[2017-07-17] MEDS: CALCIUM CARBONATE 500 MG TAB.CHEW PO (20:58)
[2017-07-18] MEDS: oxyCODONE/APAP 5/325 1 TAB TABLET PO ×6 (01:04→21:34)
[2017-07-18] MEDS: INSULIN ASPART 300 UNITS/3 ML INSULN.PEN SQ ×3 (08:00→16:58)
[2017-07-18 08:29] LABS: POC GLUCOSE 108 mg/dL (70-99)
[2017-07-18] MEDS: METOPROLOL TART IMMED RELEASE 25 MG TABLET. PO ×2 (08:50→21:34)
[2017-07-18] MEDS: ASPIRIN ENTERIC COATED 325 MG TABLET.DR. PO (08:50)
[2017-07-18] MEDS: POLYETHYLENE GLYCOL 3350 17 GM PACKET. PO ×2 (08:51→21:34)
[2017-07-18] MEDS: PRENATAL MULTIVITAMIN TABLET. PO (08:51)
[2017-07-18] MEDS: SENNOSIDES/DOCUSATE 8.6/50MG TABLET. PO ×2 (08:51→21:33)
[2017-07-18] MEDS: FUROSEMIDE 40 MG/4 ML VIAL. IVP ×2 (08:51→17:20)
[2017-07-18 09:36] LABS: ADD MAN DIFF? NO
[2017-07-18 09:44] LABS: BASO % 1 % (0-3); EOS # 0.3 x10^3/uL (0.0-0.7); EOS % 4 % (0-3); HEMATOCRIT 30.7 % (39.0-53.0); HEMOGLOBIN 10.4 g/dL (13.0-17.5); LYMPH # 0.7 x10^3/uL (1.0-4.8); LYMPH % 9 % (24-48); MEAN CORPUSCULAR HEMOGLOBIN 32 pg (25-35); MEAN CORPUSCULAR HGB CONC 34 g/dL (31-37); MEAN CORPUSCULAR VOLUME 96 fL (79-100); MONO % 12 % (0-9); NEUT # 6.2 x10^3uL (1.8-7.7); NEUT % 75 % (31-73); PLATELET COUNT 121 x10^3/uL (140-400); RED BLOOD COUNT 3.21 x10^6/uL (4.30-5.70); RED CELL DISTRIBUTION WIDTH 14.1 % (11.5-14.5); WHITE BLOOD COUNT 8.3 x10^3/uL (4.0-11.0)
[2017-07-18 11:12] LABS: ANION GAP 12 (6-14); BLOOD UREA NITROGEN 41 mg/dL (8-26); CALCIUM 8.5 mg/dL (8.5-10.1); CARBON DIOXIDE 25 mmol/L (21-32); CHLORIDE 99 mmol/L (98-107); CREATININE 1.2 mg/dL (0.7-1.3); GFR 59.9; GLUCOSE 121 mg/dL (70-99); SODIUM 136 mmol/L (136-145)
[2017-07-18 12:25] LABS: POC GLUCOSE 114 mg/dL (70-99)
[2017-07-18 16:53] LABS: POC GLUCOSE 91 mg/dL (70-99)
[2017-07-18] MEDS: FAMOTIDINE 20 MG TABLET. PO (21:33)
[2017-07-18] MEDS: ATORVASTATIN CALCIUM 20 MG TABLET PO (21:33)
[2017-07-18] MEDS: MONTELUKAST SODIUM 10 MG TABLET. PO (21:33)
[2017-07-18] MEDS: DOCUSATE SODIUM 100 MG CAPSULE. PO (21:33)
[2017-07-19] MEDS: oxyCODONE/APAP 5/325 1 TAB TABLET PO ×5 (02:32→20:09)
[2017-07-19 05:42] LABS: ADD MAN DIFF? NO
[2017-07-19 05:49] LABS: BASO % 1 % (0-3); EOS # 0.2 x10^3/uL (0.0-0.7); EOS % 4 % (0-3); HEMOGLOBIN 9.8 g/dL (13.0-17.5); LYMPH # 0.6 x10^3/uL (1.0-4.8); LYMPH % 8 % (24-48); MEAN CORPUSCULAR HEMOGLOBIN 32 pg (25-35); MEAN CORPUSCULAR HGB CONC 34 g/dL (31-37); MEAN CORPUSCULAR VOLUME 95 fL (79-100); MONO # 0.7 x10^3/uL (0.0-1.1); MONO % 10 % (0-9); NEUT # 5.6 x10^3uL (1.8-7.7); NEUT % 78 % (31-73); PLATELET COUNT 141 x10^3/uL (140-400); RED BLOOD COUNT 3.06 x10^6/uL (4.30-5.70); RED CELL DISTRIBUTION WIDTH 13.8 % (11.5-14.5); WHITE BLOOD COUNT 7.1 x10^3/uL (4.0-11.0)
[2017-07-19 06:27] LABS: ANION GAP 11 (6-14); BLOOD UREA NITROGEN 35 mg/dL (8-26); CALCIUM 8.8 mg/dL (8.5-10.1); CARBON DIOXIDE 27 mmol/L (21-32); CHLORIDE 100 mmol/L (98-107); CREATININE 1.2 mg/dL (0.7-1.3); GFR 59.9; GLUCOSE 97 mg/dL (70-99); POTASSIUM 3.8 mmol/L (3.5-5.1); SODIUM 138 mmol/L (136-145)
[2017-07-19] MEDS: INSULIN ASPART 300 UNITS/3 ML INSULN.PEN SQ ×3 (08:00→17:00)
[2017-07-19 08:10] LABS: POC GLUCOSE 96 mg/dL (70-99)
[2017-07-19] MEDS: METOPROLOL TART IMMED RELEASE 25 MG TABLET. PO ×2 (08:59→20:10)
[2017-07-19] MEDS: ASPIRIN ENTERIC COATED 325 MG TABLET.DR. PO (08:59)
[2017-07-19] MEDS: SENNOSIDES/DOCUSATE 8.6/50MG TABLET. PO ×2 (08:59→20:10)
[2017-07-19] MEDS: FUROSEMIDE 40 MG/4 ML VIAL. IVP ×2 (09:00→18:20)
[2017-07-19] MEDS: POLYETHYLENE GLYCOL 3350 17 GM PACKET. PO ×2 (09:00→20:10)
[2017-07-19] MEDS: PRENATAL MULTIVITAMIN TABLET. PO (09:00)
[2017-07-19 11:47] LABS: POC GLUCOSE 105 mg/dL (70-99)
[2017-07-19 17:48] LABS: POC GLUCOSE 82 mg/dL (70-99)
[2017-07-19] MEDS: FAMOTIDINE 20 MG TABLET. PO (20:09)
[2017-07-19] MEDS: MONTELUKAST SODIUM 10 MG TABLET. PO (20:10)
[2017-07-19] MEDS: DOCUSATE SODIUM 100 MG CAPSULE. PO (20:10)
[2017-07-19] MEDS: ATORVASTATIN CALCIUM 20 MG TABLET PO (20:10)
[2017-07-20] MEDS: oxyCODONE/APAP 5/325 1 TAB TABLET PO ×6 (00:01→20:26)
[2017-07-20 03:00] LABS: ADD MAN DIFF? NO
[2017-07-20 03:02] LABS: BASO % 1 % (0-3); EOS # 0.2 x10^3/uL (0.0-0.7); EOS % 3 % (0-3); HEMOGLOBIN 9.7 g/dL (13.0-17.5); LYMPH # 0.6 x10^3/uL (1.0-4.8); LYMPH % 10 % (24-48); MEAN CORPUSCULAR HEMOGLOBIN 32 pg (25-35); MEAN CORPUSCULAR HGB CONC 34 g/dL (31-37); MEAN CORPUSCULAR VOLUME 94 fL (79-100); MONO # 0.6 x10^3/uL (0.0-1.1); MONO % 10 % (0-9); NEUT # 4.4 x10^3uL (1.8-7.7); NEUT % 76 % (31-73); PLATELET COUNT 177 x10^3/uL (140-400); RED BLOOD COUNT 3.08 x10^6/uL (4.30-5.70); RED CELL DISTRIBUTION WIDTH 14.1 % (11.5-14.5); WHITE BLOOD COUNT 5.7 x10^3/uL (4.0-11.0)
[2017-07-20 03:30] LABS: ANION GAP 8 (6-14); BLOOD UREA NITROGEN 26 mg/dL (8-26); CALCIUM 8.4 mg/dL (8.5-10.1); CARBON DIOXIDE 30 mmol/L (21-32); CHLORIDE 99 mmol/L (98-107); CREATININE 1.2 mg/dL (0.7-1.3); GFR 59.9; GLUCOSE 101 mg/dL (70-99); POTASSIUM 3.3 mmol/L (3.5-5.1); SODIUM 137 mmol/L (136-145)
[2017-07-20] MEDS: INSULIN ASPART 300 UNITS/3 ML INSULN.PEN SQ ×3 (08:00→17:00)
[2017-07-20] MEDS: PRENATAL MULTIVITAMIN TABLET. PO (08:25)
[2017-07-20] MEDS: FUROSEMIDE 40 MG/4 ML VIAL. IVP ×2 (08:26→08:35)
[2017-07-20] MEDS: ASPIRIN ENTERIC COATED 325 MG TABLET.DR. PO (08:26)
[2017-07-20] MEDS: METOPROLOL TART IMMED RELEASE 25 MG TABLET. PO ×2 (08:27→20:26)
[2017-07-20] MEDS: SENNOSIDES/DOCUSATE 8.6/50MG TABLET. PO ×2 (08:28→20:29)
[2017-07-20] MEDS: POLYETHYLENE GLYCOL 3350 17 GM PACKET. PO ×2 (08:28→20:29)
[2017-07-20 08:39] LABS: POC GLUCOSE 96 mg/dL (70-99)
[2017-07-20 11:29] LABS: POC GLUCOSE 97 mg/dL (70-99)
[2017-07-20] MEDS: POTASSIUM CHLORIDE 20 MEQ TABLET.ER. PO (16:02)
[2017-07-20 17:34] LABS: POC GLUCOSE 96 mg/dL (70-99)
[2017-07-20] MEDS: FUROSEMIDE 40 MG TABLET. PO (17:52)
[2017-07-20] MEDS: ALBUTEROL SULFATE 2.5 MG/3 ML NEBU. NEB (19:26)
[2017-07-20] MEDS: ATORVASTATIN CALCIUM 20 MG TABLET PO (20:26)
[2017-07-20] MEDS: FAMOTIDINE 20 MG TABLET. PO (20:27)
[2017-07-20] MEDS: MONTELUKAST SODIUM 10 MG TABLET. PO (20:27)
[2017-07-20] MEDS: DOCUSATE SODIUM 100 MG CAPSULE. PO (20:28)
[2017-07-20] MEDS ORDERED: FUROSEMIDE 40 MG TABLET. PO (21:00)
[2017-07-21] MEDS: oxyCODONE/APAP 5/325 1 TAB TABLET PO ×7 (00:03→21:21)
[2017-07-21] MEDS: FUROSEMIDE 40 MG TABLET. PO ×2 (07:49→17:37)
[2017-07-21] MEDS: ASPIRIN ENTERIC COATED 325 MG TABLET.DR. PO (07:49)
[2017-07-21] MEDS: PRENATAL MULTIVITAMIN TABLET. PO (07:49)
[2017-07-21] MEDS: METOPROLOL TART IMMED RELEASE 25 MG TABLET. PO ×2 (07:57→21:12)
[2017-07-21] MEDS: POLYETHYLENE GLYCOL 3350 17 GM PACKET. PO ×2 (07:58→21:00)
[2017-07-21] MEDS: SENNOSIDES/DOCUSATE 8.6/50MG TABLET. PO ×2 (07:58→21:00)
[2017-07-21 08:40] LABS: ADD MAN DIFF? NO
[2017-07-21 08:58] LABS: ALBUMIN 2.7 g/dL (3.4-5.0); ALBUMIN/GLOBULIN RATIO 0.7 (1.0-1.7); ALK PHOS 233 U/L (46-116); ALT (SGPT) 233 U/L (16-63); ANION GAP 11 (6-14); AST (SGOT) 100 U/L (15-37); BLOOD UREA NITROGEN 22 mg/dL (8-26); BUN/CREATININE RATIO 22 (6-20); CALCIUM 8.6 mg/dL (8.5-10.1); CARBON DIOXIDE 27 mmol/L (21-32); CHLORIDE 97 mmol/L (98-107); GFR 73.9; GLUCOSE 102 mg/dL (70-99); SODIUM 135 mmol/L (136-145); TOTAL BILIRUBIN 0.9 mg/dL (0.2-1.0); TOTAL PROTEIN 6.7 g/dL (6.4-8.2)
[2017-07-21] MEDS: LACTOBACILLUS RHAMNOSUS GG 1 CAPSULE. PO ×2 (09:00→21:13)
[2017-07-21 09:02] LABS: POTASSIUM 3.7 mmol/L (3.5-5.1)
[2017-07-21 09:18] LABS: BASO % 1 % (0-3); EOS # 0.1 x10^3/uL (0.0-0.7); EOS % 1 % (0-3); HEMATOCRIT 33.4 % (39.0-53.0); HEMOGLOBIN 11.1 g/dL (13.0-17.5); LYMPH # 0.6 x10^3/uL (1.0-4.8); LYMPH % 10 % (24-48); MEAN CORPUSCULAR HEMOGLOBIN 31 pg (25-35); MEAN CORPUSCULAR HGB CONC 33 g/dL (31-37); MEAN CORPUSCULAR VOLUME 95 fL (79-100); MONO # 0.5 x10^3/uL (0.0-1.1); MONO % 8 % (0-9); NEUT # 5.2 x10^3uL (1.8-7.7); NEUT % 80 % (31-73); PLATELET COUNT 204 x10^3/uL (140-400); RED BLOOD COUNT 3.53 x10^6/uL (4.30-5.70); RED CELL DISTRIBUTION WIDTH 14.1 % (11.5-14.5); WHITE BLOOD COUNT 6.5 x10^3/uL (4.0-11.0)
[2017-07-21 09:26] LABS: POC GLUCOSE 99 mg/dL (70-99)
[2017-07-21 11:30] LABS: POC GLUCOSE 117 mg/dL (70-99)
[2017-07-21] MEDS: FUROSEMIDE 20 MG/2 ML VIAL. IVP (12:00)
[2017-07-21 15:59] LABS: PH,BODY FLUID 7.65
[2017-07-21 17:18] LABS: POC GLUCOSE 95 mg/dL (70-99)
[2017-07-21 17:32] LABS: BF CLARITY TURBID; BF COLOR RED; BF MON % 93 %; BF PMN % 7 %; BF RBC COUNT 91778 /cmm; BF SOURCE PLEURAL; BF WBC COUNT 1099 /cmm
[2017-07-21 19:33] LABS: LACTATE DEHYDROGENASE 452 U/L (85-227)
[2017-07-21] MEDS: FAMOTIDINE 20 MG TABLET. PO (21:00)
[2017-07-21] MEDS: MONTELUKAST SODIUM 10 MG TABLET. PO (21:00)
[2017-07-21] MEDS: DOCUSATE SODIUM 100 MG CAPSULE. PO (21:00)
[2017-07-21 21:08] LABS: POC GLUCOSE 92 mg/dL (70-99)
[2017-07-21] MEDS: ATORVASTATIN CALCIUM 20 MG TABLET PO (21:13)
[2017-07-22] MEDS: oxyCODONE/APAP 5/325 1 TAB TABLET PO ×4 (01:29→14:45)
[2017-07-22 08:15] LABS: POC GLUCOSE 91 mg/dL (70-99)
[2017-07-22] MEDS: POLYETHYLENE GLYCOL 3350 17 GM PACKET. PO (09:00)
[2017-07-22] MEDS: SENNOSIDES/DOCUSATE 8.6/50MG TABLET. PO (09:00)
[2017-07-22] MEDS: ASPIRIN ENTERIC COATED 325 MG TABLET.DR. PO (09:05)
[2017-07-22] MEDS: PRENATAL MULTIVITAMIN TABLET. PO (09:05)
[2017-07-22] MEDS: FUROSEMIDE 40 MG TABLET. PO (09:05)
[2017-07-22] MEDS: METOPROLOL TART IMMED RELEASE 25 MG TABLET. PO (09:06)
[2017-07-22] MEDS: LACTOBACILLUS RHAMNOSUS GG 1 CAPSULE. PO (09:06)
[2017-07-22 11:23] LABS: BF TRIGLYCERIDES 42 mg/dL (.)
== END 2017-07-22 16:46 | disposition home or self-care (01) | DRG 233 ==
LOC: 1 WEST ICU 07-12 11:05 → 2 SOUTH 07-15 20:18 → 2 NORTH 07-06 14:13 → ER 09:59 → 5 NORTH 10:46
PROC: 06BQ4ZZ Excision of Left Saphenous Vein, Percutaneous Endoscopic Approach (ICD-10-PCS; 2017-07-12 07:30)
PROC: 02100Z9 Bypass Coronary Artery, One Artery from Left Internal Mammary, Open Approach (ICD-10-PCS; 2017-07-12 07:30)
PROC: 021009W Bypass Coronary Artery, One Artery from Aorta with Autologous Venous Tissue, Open Approach (ICD-10-PCS; 2017-07-12 07:30)
PROC: 02100A3 Bypass Coronary Artery, One Artery from Coronary Artery with Autologous Arterial Tissue, Open Approach (ICD-10-PCS; 2017-07-12 07:30)
PROC: 5A1221Z Performance of Cardiac Output, Continuous (ICD-10-PCS; 2017-07-12 07:30)
PROC: 03BC0ZZ Excision of Left Radial Artery, Open Approach (ICD-10-PCS; 2017-07-12 07:30)
PROC: 4A023N7 Measurement of Cardiac Sampling and Pressure, Left Heart, Percutaneous Approach (ICD-10-PCS; principal; 2017-07-12 07:48)
PROC: 0W9B3ZZ Drainage of Left Pleural Cavity, Percutaneous Approach (ICD-10-PCS; 2017-07-12 07:48)
PROC: B2111ZZ Fluoroscopy of Multiple Coronary Arteries using Low Osmolar Contrast (ICD-10-PCS; 2017-07-12 07:48)
DX: I25.10 Atherosclerotic heart disease of native coronary artery without angina pectoris (principal); I50.43 Acute on chronic combined systolic (congestive) and diastolic (congestive) heart failure; I47.2 Ventricular tachycardia; D62 Acute posthemorrhagic anemia; J98.11 Atelectasis; K56.7 Ileus, unspecified; N17.9 Acute kidney failure, unspecified; M94.0 Chondrocostal junction syndrome [Tietze]; E78.5 Hyperlipidemia, unspecified; I11.0 Hypertensive heart disease with heart failure; I25.2 Old myocardial infarction; I49.3 Ventricular premature depolarization; M19.90 Unspecified osteoarthritis, unspecified site; J44.9 Chronic obstructive pulmonary disease, unspecified; R09.02 Hypoxemia; Z82.49 Family history of ischemic heart disease and other diseases of the circulatory system; Z86.74 Personal history of sudden cardiac arrest; Z95.5 Presence of coronary angioplasty implant and graft
CPT/HCPCS: 32555; 36415; 36600; 71045; 71250; 76770; 78452; 80048; 80053; 80061; 80307; 81001; 82533; 82550; 82607; 82803; 82805; 82962; 83615; 83690; 83735; 83880; 83986; 84132; 84300; 84443; 84478; 84484; 84550; 85025; 85027; 85347; 85384; 85520; 85610; 85730; 86850; 86900; 86901; 86920; 87071; 87075; 87086; 87102; 87116; 87205; 87641; 89050; 93005; 93017; 93306; 93308; 93458; 93567; 93880; 93970; 94618; 94640; 94667; 94760; 96374; 96375; 96376; 97110-GO; 97116-GP; 97161-GP; 97164-GP; 97165-GO; 97168-GO; 97530-GO; 97530-GP; 97535-GO; 99152; 99153; 99285; 99285-25; A9500; C1769; C1771; C1781; C1892; G0269; J0171; J0282; J0690; J1644; J1815; J1940; J2150; J2250; J2270; J2405; J2440; J2704; J2765; J2785; J3010; J3370; J3475; J3480; J3490; J7030; J7040; J7050; J7120; J7613; P9041; P9046; Q9967; S0028